=== PATIENT | male | born 1975 | race African-American/Black ===

== ENCOUNTER 2017-07-12 11:17 | Emergency (ER) | payer SELFPAY ==
[~2017-07-12] VITALS: Ht 175.3 cm; Wt 99.0 kg
[~2017-07-12 11:17] MED LIST: BACT800T5 PO; CEPH500C3 PO
[2017-07-12 11:19] VITALS: BP 136/84; PULSE 92; RESP 14; TEMP 98.7; O2SAT 99
[2017-07-12] MEDS ORDERED: KETOROLAC TROMETHAMINE 60 MG/2 ML (IM) VIAL IM ONE (13:15)
--- NOTE | 2017-07-12 14:01 | PD ---
HPI Chief Complaint: Numbness/Tingling Time Seen by Provider: 13:02 Travel History International Travel<30 days: No Contact w/Intl Traveler<30days: No Traveled to known affect area: No History of Present Illness HPI 42yo M with no PMH presents to the ED with c/o numbness/ tingling in bilateral hands for 1 month. Said it is first 3 fingers and half of radial aspect of 4th digit in both hands. It is worst at night. Denies any trauma, fever, chest pain, sob, n/v, abdominal pain. PFSH Past Medical History Pneumonia: Yes (CHILDHOOD) Influenza Vaccination: No Past Surgical History Surgical History: No Previous Surgery Social History Alcohol Use: Yes (OCCASIONALLY (WEEKENDS)) Tobacco Use: Yes (1/2 PPD) Substance Use: No Allergies-Medications (Allergen,Severity, Reaction): Coded Allergies: mushroom (Verified Allergy, Intermediate, EDEMA, 07/12/17) Reported Meds & Prescriptions Reported Meds & Active Scripts Active No Active Prescriptions or Reported Medications Review of Systems Except as stated in HPI: all other systems reviewed are Neg Physical Exam Narrative GENERAL: 42yo M not in distress. SKIN: Focused skin assessment warm/dry. HEAD: Atraumatic. Normocephalic. CARDIOVASCULAR: Regular rate and rhythm. No murmur appreciated. RESPIRATORY: No accessory muscle use. Clear to auscultation. Breath sounds equal bilaterally. GASTROINTESTINAL: Abdomen soft, non-tender, nondistended. MUSCULOSKELETAL: Left hand: Radial pulse 2+. FROM in all digits. Sensation decreased in 1, 2, 3 and half of radial aspect of 4th digit in median nerve distribution in both hands. FROM bilateral risk. NEUROLOGICAL: Awake and alert. No obvious cranial nerve deficits. Motor grossly within normal limits. Normal speech. PSYCHIATRIC: Appropriate mood and affect; insight and judgment normal. Data Data Last Documented VS Vital Signs Date Time Temp Pulse Resp B/P (MAP) Pulse Ox O2 Delivery O2 Flow Rate FiO2 07/12/17 11:19 98.7 92 14 136/84 (101) 99 Orders Orders Ketorolac Inj (Toradol Inj) (07/12/17 13:15) Splint Or Brace Apply/Monitor (07/12/17 14:01) MDM Medical Decision Making Medical Screen Exam Complete: Yes Emergency Medical Condition: Yes Differential Diagnosis Carpal tunnel syndrome vs. peripheral neuropathy Narrative Course 42yo M with bilateral hand numbness/tingling for 1 month in the median nerve distribution. Bilateral wrist splints placed for comfortable and will give ibuprofen for now and have pt follow up as outpatient for further evaluation and definitive treatment. Pt given toradol with some relieve. Return precautions given. Diagnosis Primary Impression: Carpal tunnel syndrome Qualified Codes: G56.03 - Carpal tunnel syndrome, bilateral upper limbs Referrals: Mariela Lancaster MD call for appointment Patient Instructions: General Instructions Departure Forms: Tests/Procedures Additional Instructions: Please follow up with [facility] or hand clinic if symptoms worsen. Med/Other Pt SpecificInfo: Prescription(s) given Scripts Ibuprofen (Ibuprofen) 600 Mg Tab 600 MG PO Q8HR Y for PAIN, #20 TAB 0 Refills Prov: Elif Smith DO 07/12/17 Disposition: 01 DISCHARGE HOME Condition: Stable Elif Smith DO Jul 12, 2017 14:01
[2017-07-12] MEDS ORDERED: IBUP-232 PO (14:34)
== END 2017-07-12 15:01 | disposition home or self-care (01) ==
LOC: NEPD 11:17
DX: G56.03 Carpal tunnel syndrome, bilateral upper limbs (principal); F17.200 Nicotine dependence, unspecified, uncomplicated; Z87.09 Personal history of other diseases of the respiratory system
CPT/HCPCS: 96372; 99284; J1885; L3908